=== PATIENT | male | born 1970 | race Caucasian/White ===

== ENCOUNTER 2019-03-10 06:52 | Day surgery (SDC) | payer OTHER ==
[~2019-03-10 06:52] MED LIST: Lactated Ringers 1,000 ML IV SCH; Lidocaine 1%/Sod Bicarbonate in NS 8.4% 1 ML Syringe IDERM PRN; Sodium Chloride 0.9% 10 ML Syringe FLUSH PRN
--- NOTE | 2019-03-10 07:39 | PCM.PREANE ---
Preanesthetic Assessment - Anesthesia/Transfusion/Family Hx Anesthesia History: Prior Anesthesia Without Reaction Family History of Anesthesia Reaction: No - Review of Systems General: No Symptoms Pulmonary: No Symptoms Cardiovascular: No Symptoms (CABG in March of 2018, no cardiac issues since surgery. ), Other (Hypertension) Gastrointestinal: No Symptoms Neurological: No Symptoms Other: Reports: None (Morbid Obesity) - Physical Assessment NPO Status Date: 03/09/19 NPO Status Time: 19:00 O2 Sat by Pulse Oximetry: 96 Respiratory Rate: 16 Vital Signs: Last Vital Signs Temp 36.3 C 03/10/19 07:00 Pulse 73 03/10/19 07:00 Resp 16 03/10/19 07:00 BP 140/79 03/10/19 07:00 Pulse Ox 96 03/10/19 07:00 Weight: 161.479 kg ASA Class: 3 Mental Status: Alert & Oriented x3 Airway Class: Mallampati = 2 Dentition: Reports: Normal Dentition Thyro-Mental Finger Breadths: 3 Mouth Opening Finger Breadths: 3 ROM/Head Extension: Full Lungs: Clear to Auscultation, Normal Respiratory Effort Cardiovascular: Regular Rate, Regular Rhythm - Allergies Allergies/Adverse Reactions: Allergies Allergy/AdvReac Type Severity Reaction Status Date / Time No Known Allergies Allergy Verified 03/09/19 13:39 - Anesthesia Plan Beta Doc: Metoprolol Med Last Dose Date: 03/10/19 Med Last Dose Time: 06:15 - Acknowledgements Anesthesia Type Planned: MAC Pt an Appropriate Candidate for the Planned Anesthesia: Yes Alternatives and Risks of Anesthesia Discussed w Pt/Guardian: Yes Pt/Guardian Understands and Agrees with Anesthesia Plan: Yes PreAnesthesia Questionnaire HEENT History: Reports: None Cardiovascular History: Reports: Angina, High Cholesterol Respiratory History: Reports: None Gastrointestinal History: Reports: None Genitourinary History: Reports: None HVAC ENGINEER History: Reports: None Musculoskeletal History: Reports: None Neurological History: Reports: None Psychiatric History: Reports: None Endocrine/Metabolic History: Reports: Obesity/BMI 30+, Other (See Below) Other Endocrine/Metabolic History: impaired fasting glucose Hematologic History: Reports: None Immunologic History: Reports: None Oncologic (Cancer) History: Reports: None Dermatologic History: Reports: None - Past Surgical History Head Surgeries/Procedures: Reports: None HEENT Surgical History: Reports: None Cardiovascular Surgical History: Reports: Coronary Artery Bypass Respiratory Surgical History: Reports: None GI Surgical History: Reports: Colonoscopy Female Surgical History: Reports: None Male Surgical History: Reports: None Endocrine Surgical History: Reports: None Neurological Surgical History: Reports: None Musculoskeletal Surgical History: Reports: None Dermatological Surgical History: Reports: None - SUBSTANCE USE Smoking Status *Q: Former Smoker Recreational Drug Use History: No - HOME MEDS Home Medications: Home Meds Aspirin 325 mg PO DAILY 03/09/19 [History] B Complex W-C No.20/Folic Acid [Triphrocaps Softgel] 1 mg PO DAILY 03/09/19 [ History] Coconut Oil 1,000 mg PO DAILY 03/09/19 [History] Metoprolol Succinate 50 mg PO DAILY 03/09/19 [History] Nitroglycerin [Nitrostat] 0.4 mg SL ASDIRECTED PRN 03/09/19 [History] Rosuvastatin Calcium [Crestor] 40 mg PO DAILY 03/09/19 [History] Ubidecarenone [Coq-10] 100 mg PO BID 03/09/19 [History] Ubidecarenone [Coq-10] 100 mg PO BID 03/09/19 [History] Vitamin D3/Vitamin K2 [D3 + K2 Dots 1,000 Unit] 1 tab PO DAILY 03/09/19 [History ] Zolpidem [Ambien] 5 mg PO BEDTIME 03/09/19 [History] amLODIPine [Norvasc] 5 mg PO DAILY 03/09/19 [History] - CURRENT (IN HOUSE) MEDS Current Meds: Current Medications Lactated Ringer's (Ringers, Lactated) 1,000 mls @ 125 mls/hr IV ASDIRECTED FIONA Stop: 03/10/19 23:00 Lidocaine/Sodium Bicarbonate (Buffered Lidocaine 1% In Ns 8.4%) 0.25 ml IDERM ONETIME PRN PRN Reason: Prior to IV Start Stop: 03/10/19 18:00 Sodium Chloride (Saline Flush) 10 ml FLUSH ASDIRECTED PRN PRN Reason: Keep Vein Open Stop: 03/10/19 18:00
[2019-03-10] MEDS ORDERED: Propofol 200 MG/20 ML SDV ONE ×2 (07:59→09:01)
[2019-03-10] MEDS ORDERED: Midazolam 1 MG/ML 2 ML SDV ONE (07:59)
--- NOTE | 2019-03-10 09:15 | PCM48HPAN ---
Post Anesthesia Note - EVALUATION WITHIN 48HRS OF ANESTHETIC Vital Signs in Normal Range: Yes Patient Participated in Evaluation: Yes Respiratory Function Stable: Yes Airway Patent: Yes Cardiovascular Function Stable: Yes Hydration Status Stable: Yes Pain Control Satisfactory: Yes Nausea and Vomiting Control Satisfactory: Yes Mental Status Recovered: Yes Resp Rate: 16
--- NOTE | 2019-03-10 09:16 | PCM.OPNOTE ---
- General Post-Op/Procedure Note Date of Surgery/Procedure: 03/10/19 Findings: Colonoscopy with hot snare polypectomy Pre Op Diagnosis: Family history of colon cancer in father Post-Op Diagnosis: Colon Polyps, Internal hemorrhiods Anesthesia Technique: MAC Primary Surgeon: Pedro Jensen Anesthesia Provider: Va Silver EBL in mLs: 5 Complications: None Condition: Good Free Text/Narrative:: AFter the patient gave verbal and written consent he was placed on blood pressure and pulse ox monitoring. He was given iv sedation which he tolerated well. The olympus colonoscope was inserted per rectum and advanced to the cecum without difficulty. THe ileocecal valve and appendiceal orfice were imaged documenting cecal intubation. The scope was slowly withdrawn and mucosal surfaces were carefully examined. The prep was adequate. The views were adequate. A total of 9 polyps were found in the transverse, descending and sigmoid colon ranging from 2-6 mm. These were removed with hot snare polypectomy. There was good hemostasis. The scope was then retroflexed in the rectum and the details are above. The patient left the endoscopy suite in good condition. THere were no complications.
== END 2019-03-10 09:58 | disposition home or self-care (01) ==
LOC: JD.SDS 06:52
PROVIDERS: ATTEND Family Medicine
DX: Z12.11 Encounter for screening for malignant neoplasm of colon (principal); D12.4 Benign neoplasm of descending colon; D12.2 Benign neoplasm of ascending colon; D12.5 Benign neoplasm of sigmoid colon; K63.5 Polyp of colon; I10 Essential (primary) hypertension; I25.10 Atherosclerotic heart disease of native coronary artery without angina pectoris; E78.2 Mixed hyperlipidemia; E66.01 Morbid (severe) obesity due to excess calories; Z68.42 Body mass index [BMI] 45.0-49.9, adult; Z95.1 Presence of aortocoronary bypass graft; Z87.891 Personal history of nicotine dependence; Z80.0 Family history of malignant neoplasm of digestive organs; Z79.82 Long term (current) use of aspirin; Z79.899 Other long term (current) drug therapy
CPT/HCPCS: 45385; 93005; J2250; J2704; J7120; 00811